=== PATIENT | female | born 1950 | race Two or more races ===

== ENCOUNTER 2017-05-30 10:30 | Inpatient (IN) | payer OTHER ==
[~2017-05-30] VITALS: Ht 170.2 cm; Wt 81.6 kg
[~2017-05-30 10:30] MED LIST: ATIVAN0.5 M1 PO; DIOVA PO; FOLGARD TABLET1 EACH PO; [UNRECOGNIZED DRUG - OTHER]
[2017-05-30] MEDS ORDERED: ZANTAC150 MG PO (11:27)
[2017-06-07] MEDS ORDERED: DIOVAN40 MG (15:25)
[2017-06-07] MEDS ORDERED: ZANTAC150 M3 (15:26)
== END 2017-06-07 17:52 | DRG 735 ==
LOC: O/R 06-06 06:00 → OB/GYN 06-06 06:00 → SURH 06-06 10:30 → OB/GYN 06-06 13:09 → SURH 06-06 18:15 → OB/GYN 06-07 17:52
PROVIDERS: Obstetrics & Gynecology Gynecologic Oncology
PROC: 07TC4ZZ Resection of Pelvis Lymphatic, Percutaneous Endoscopic Approach (ICD-10-PCS; 2017-06-06)
PROC: 0UT74ZZ Resection of Bilateral Fallopian Tubes, Percutaneous Endoscopic Approach (ICD-10-PCS; 2017-06-06)
PROC: 0UT24ZZ Resection of Bilateral Ovaries, Percutaneous Endoscopic Approach (ICD-10-PCS; 2017-06-06)
PROC: 0UT94ZZ Resection of Uterus, Percutaneous Endoscopic Approach (ICD-10-PCS; principal; 2017-06-06 18:15)
DX: C54.1 Malignant neoplasm of endometrium (principal); N83.201 Unspecified ovarian cyst, right side

== ENCOUNTER → 2018-03-13 | Outpatient (CLI) | payer OTHER ==
[~2018-03-13] MED LIST changes: +DIOVAN40 MG; +ZANTAC150 M3; +ZANTAC150 MG PO
== END | disposition home or self-care (01) ==
LOC: NUCLEAR 08:11
DX: C54.1 Malignant neoplasm of endometrium (principal)
CPT/HCPCS: 78815; A9552

== ENCOUNTER 2019-03-25 08:30 | Outpatient (CLI) | payer OTHER | END 2019-03-25 08:44 | disposition home or self-care (01) | LOC: NUCLEAR 08:30 | DX: C79.62 Secondary malignant neoplasm of left ovary (principal); C54.1 Malignant neoplasm of endometrium | CPT/HCPCS: 78815; A9552 ==

== ENCOUNTER 2020-04-12 08:10 | Outpatient (CLI) | payer OTHER | END 2020-04-12 08:29 | disposition home or self-care (01) | LOC: NUCLEAR 08:10 | PROVIDERS: ATTEND Internal Medicine Hematology & Oncology | DX: C54.1 Malignant neoplasm of endometrium (principal) | CPT/HCPCS: 78815; A9552 ==

== ENCOUNTER 2021-04-12 07:17 | Outpatient (CLI) | payer OTHER | END 2021-04-12 07:18 | disposition home or self-care (01) | LOC: NUCLEAR 07:17 | PROVIDERS: ATTEND Internal Medicine Hematology & Oncology | DX: C54.1 Malignant neoplasm of endometrium (principal) | CPT/HCPCS: 78815; A9552 ==

== ENCOUNTER → 2022-04-27 | Outpatient (CLI) | payer OTHER | END | disposition home or self-care (01) | LOC: NUCLEAR 04-26 07:00 | PROVIDERS: ATTEND Internal Medicine Hematology & Oncology | DX: C54.1 Malignant neoplasm of endometrium (principal) | CPT/HCPCS: 78816; A9552 ==

== ENCOUNTER 2024-01-07 10:21 | Outpatient (CLI) | payer OTHER | END 2024-01-07 10:22 | disposition home or self-care (01) | LOC: NUCLEAR 10:21 | DX: E21.0 Primary hyperparathyroidism (principal) | CPT/HCPCS: 78071; A9500 ==